=== PATIENT | male | born 1935 | race Caucasian/White ===

== ENCOUNTER 2016-09-14 16:53 | Inpatient (IN) | payer MEDICARE ==
[~2016-09-14] VITALS: Ht 180.3 cm; Wt 80.3 kg
[2016-09-14 17:09] VITALS: BP 144/94
--- NOTE | 2016-09-14 17:10 | NUR ---
PT ARRIVED TO FLOOR ACCOMPANIED BY STAFF AND AT SIDE VIA WC; PT.AMBULATED TO BED AND APPEARS TO BE IN STABLE CONDITION AT THIS TIME; V/S ASSESSED TEMP REPORTED AT 102.9, WAITING FOR TYLENOL TO BE PROFILED THROUGH CARDINAL/CALLED TO ORDER STAT; ORDERS BEING PUT IN PLACE, BLOOD DRAWN, WILL ATTEMPT TO COLLECT UA AND STOOL SAMPLES ORDERED; IV NEEDS TO BE PLACED, IS IN W/PT.NOW; PT. HAS BEEN ORIENTED TO ROOM, CALL SYSTEM, BED,TV AND INSTRUCTED TO CALL FOR AMBULATION AND ASSISTANCE
[2016-09-14 17:28] LABS: HEMATOCRIT 41.7 % (39.0-50.0); HEMOGLOBIN 14.1 g/dl (14.0-18.0); IMMATURE GRANULOCYTES 0.8 % (0.0-1.0); MEAN CORPUSCULAR HGB 32.8 pG CALC (26.0-32.0); MEAN CORPUSCULAR HGB CONC 33.8 g/L CALC (32.0-36.0); NEUT# 5.61 thou/uL (1.82-7.42); RED BLOOD COUNT 4.3 mill/uL (4.70-6.10); RED CELL DISTRI WIDTH 13.8 % (11.5-15.5)
[2016-09-14 17:43] LABS: ALBUMIN 4.3 g/dL (3.2-5.0); BILIRUBIN, TOTAL 0.9 mg/dL (0.0-1.4); CALCIUM 9.3 mg/dL (8.4-10.2); CREATININE 1.5 mg/dL (0.7-1.3)
--- NOTE | 2016-09-14 18:54 | NUR ---
IV SITE ACCESSED IN LFA; PT.TOLERATED WELL; BED IN LOWEST POSITION,CALL LIGHT W/IN REACH; PT.CALLING NOW
[2016-09-14 19:20] VITALS: BP 127/67
--- NOTE | 2016-09-14 19:30 | NUR ---
PATIENT RESTING IN BED ON THE PHONE AT THIS TIME. ALERT AND ORIENTEDX3. BOTH FEET ELEVATED ON PILLOWS WITH DRESSING TO BOTH FEET INTACT WITH HERVE WRAP DRESSING. HEP LOCK TO LEFT FOREARM INTACT AND APPEARS HEALTHY AT THIS TIME. VOIDING QS IN URINAL AND STILL NO BM. ABD IS SOFT WITH ACTIVE BS. SAFETY PRECAUTIONS REINFORCED. CALL LIGHT IN REACH. WILL CONT TO MONITOR.
--- NOTE | 2016-09-14 19:40 | NUR ---
PATIENT BACK IN ROOM AFTER GOING TO RADIOLOGY FOR CXR. PATIENT RESTING IN BED AWAKE ALERT AND ORIENTEDX3. IVF NS HUNG VIA LEFT FOREARM SITE AT 100CC/HR. SITE APPEARS HEALTHY AT THIS TIME. TEMP IS 100.4 AT THIS TIME. PATIENT WITH NO COMPLAINTS. LAB WORK IS BEING DRAWN. PATIENT INSTRUCTED THAT WE NEED BOTH URINE AND STOOL SPEC WHEN HE IS ABLE TO PROVIDE. LUNGS ARE CLEAR. HR IS IRREGULAR. TELE MONITORING DEVICE IN PLACE AND READING A-FIB-80. ABD IS SOFT WITH ACTIVE BS. NO PERIPHERAL EDEMA NOTED. SAFETY PRECAUTIONS REINFROCED. CALL LIGHT IN REACH. WILL CONT TO MONITOR.
--- NOTE | 2016-09-14 21:13 | NUR ---
PATIENT RESTING IN BED. IV MAXIPIME HUNG ORDERED. TEMP-99.3 AT THIS TIME. PATIENT WITH NO COMPLAINTS AT THIS TIME. CALL LIGHT IN REACH. WILL CONT TO MONITOR.
--- NOTE | 2016-09-14 21:52 | NUR ---
PATIENT VOIDED 350 YELLOW URINE AND URINE SPEC OBTAINED. FLAGYL INFUSING ORDERED. PATIENT WITH HS SNACK. CALL LIGHT IN REACH. WILL CONT TO MONITOR.
[2016-09-14 22:30] LABS: URINE BILIRUBIN - DIPSTICK NEGATIVE (NEGATIVE); URINE BLOOD DIPSTICK MODERATE (NEGATIVE); URINE CLARITY CLEAR; URINE COLOR YELLOW; URINE GLUCOSE - DIPSTICK NEGATIVE (NEGATIVE); URINE KETONE NEGATIVE (NEGATIVE); URINE LEUK ESTERASE NEGATIVE (Negative); URINE NITRITE - DIPSTICK NEGATIVE (Negative); URINE PROTEIN - DIPSTICK TRACE mg/dL (NEG-TRACE); URINE UROBILINOGEN - DIPSTICK 0.2 E.U./dL (0.2)
[2016-09-14 22:42] LABS: URINE WBC 0-2 WBC/hpf (0-5)
[2016-09-14 23:58] VITALS: BP 141/83
[2016-09-15] VITALS (7 sets, daily range): BP systolic 125–175; BP diastolic 71–92
--- NOTE | 2016-09-15 00:10 | NUR ---
PATIENT RESTING IN BED WITH NO COMPLAINTS AT THIS TIME. AFEBRILE AT THIS TIME. CALL LIGHT IN REACH. WILL CONT TO MONITOR.
--- NOTE | 2016-09-15 03:23 | NUR ---
PATIENT RESTING IN BED SHIVERING-TEMP IS 101.5. PATIENT MEDICATED WITH TYLENOL 650MG PO. BLANKETT REMOVED FROM BED. PATIENT VOIDING CLEAR YELLOW URINE IN URINAL. PATIENT OFFERED DIET COLA AND WAS ABLE TO DRINK IT. CALL LIGHT IN REACH. WILL CONT TO MONITOR.
[2016-09-15 04:07] LABS: HEMATOCRIT 39.8 % (39.0-50.0); HEMOGLOBIN 13.9 g/dl (14.0-18.0); IMMATURE GRANULOCYTES 0.8 % (0.0-1.0); MEAN CELL VOLUME 94.8 fL CALC (80.0-100.0); MEAN CORPUSCULAR HGB 33.1 pG CALC (26.0-32.0); MEAN CORPUSCULAR HGB CONC 34.9 g/L CALC (32.0-36.0); NEUT# 5.27 thou/uL (1.82-7.42); RED BLOOD COUNT 4.2 mill/uL (4.70-6.10); RED CELL DISTRI WIDTH 13.5 % (11.5-15.5)
[2016-09-15 04:19] LABS: ALBUMIN 3.9 g/dL (3.2-5.0); ALKALINE PHOSPHATASE 67 u/l (38-126); ANION GAP 16 (6-22 (CALC)); BILIRUBIN, TOTAL 0.9 mg/dL (0.0-1.4); BUN 19 mg/dL (8-23); BUN/CREATININE RATIO 15 (12-20 (CALC)); CALCIUM 8.8 mg/dL (8.4-10.2); CARBON DIOXIDE 24 mmol/l (22-30); CHLORIDE 100 mmol/l (95-108); CREATININE 1.3 mg/dL (0.7-1.3); GFR 53 ML/MIN (>=60 (CALC)); GFR FOR AFR.AMER. > 60 ML/MIN (>=60 (CALC)); GLUCOSE 95 mg/dL (82-115); POTASSIUM 3.6 mmol/l (3.5-5.1); SGOT/AST 30 u/l (19-48); SGPT/ALT 34 u/l (11-66); SODIUM 137 mmol/l (137-146); TOTAL PROTEIN 6.5 g/dL (6.3-8.2)
--- NOTE | 2016-09-15 07:45 | NUR ---
ASSESSMENT IS COMPLETED: IV SITE IS FREE FROM REDNESS OR EDEMA. NO DISTRESS NOTED. FAMILY HAS CALLED AND INQUIRED ABOUT PT. CONTINUE TO OSBERVE AND MONITOR,.
[2016-09-15] MEDS ORDERED: TYLENOL 500MG TAB PO (10:05)
[2016-09-15] MEDS ORDERED: FISH OIL1000 MG PO (10:07)
[2016-09-15] MEDS ORDERED: FLAXSEED OIL1000 MG PO (10:07)
[2016-09-15] MEDS ORDERED: [UNRECOGNIZED DRUG - OTHER] PO (10:12)
[2016-09-15] MEDS ORDERED: FOSINOPRIL40 MG PO (10:13)
[2016-09-15] MEDS ORDERED: AMLODIPINE5 MG PO (10:14)
[2016-09-15] MEDS ORDERED: TERAZOSIN5 MG PO (10:16)
[2016-09-15] MEDS ORDERED: NOVOLIN N100 UNIT/1 SC (10:19)
[2016-09-15] MEDS ORDERED: METO50TA52 PO (10:20)
[2016-09-15] MEDS ORDERED: CYANOCOBAL1000 MCG/M IM (10:22)
--- NOTE | 2016-09-15 12:00 | NUR ---
PT IS RELAXING IN BED HAS BEEN RUNNING A FEVER OF 100.8 THEN REDUCED WHEN TYLENOL WAS GIVEN. CONTINUE TO OSBERVE AND MONITOR. FAMILY HAS BEEN CALLING AND INQUIRING. IV SITE IS FREE FROM REDNESS OR EDEMA.
--- NOTE | 2016-09-15 13:50 | NUR ---
PT RETURNED FROM CT SCAN AND RECEIVED A CALL FROM HIS DAUGHTER IN [place].
--- NOTE | 2016-09-15 16:00 | NUR ---
PT IS RELAXING IN BED WITH MO DISTRESS NOTED. IV SITE IS FREE FROM REDNESS OR EDEMA.
--- NOTE | 2016-09-15 19:00 | NUR ---
RECEIVED SHIFT REPORT FROM RACHEL ARANDA. PATIENT LAYING IN BED AND FANILY AT BEDSIDE. DENIES PAIN. NO APPARENT ACUTE DISTRESS OR DISCOMFORT NOTED.
--- NOTE | 2016-09-15 21:19 | NUR ---
ADMINISTER MAGNESIUM CITRATE AND DULCOLAX SUPPOSITORY TO EASE DEFECATION. TOLERATED WELL.
--- NOTE | 2016-09-15 22:30 | NUR ---
PATIENT HAD A LARGE BM POST LAXATIVE ADMINISTRATION.
--- NOTE | 2016-09-16 | NUR ---
PATIENT APPEARS TO BE ASLEEP WITH EYES CLOSED. NO APPARENT ACUTE DISTRESS NOTED.
[2016-09-16 02:32] LABS: C. DIFFICILE TOXIN A&B NEGATIVE (NEGATIVE)
--- NOTE | 2016-09-16 04:00 | NUR ---
PATIENT APPEARS TO BE ASLEEP WITH EYES CLOSED. NO APPARENT ACUTE CHANGES NOTED IN PATIENT'SCONDITION.
[2016-09-16 04:35] VITALS: BP 130/81
[2016-09-16 05:29] LABS: HEMATOCRIT 36.8 % (39.0-50.0); HEMOGLOBIN 12.8 g/dl (14.0-18.0); IMMATURE GRANULOCYTES 0.8 % (0.0-1.0); MEAN CELL VOLUME 94.6 fL CALC (80.0-100.0); MEAN CORPUSCULAR HGB 32.9 pG CALC (26.0-32.0); MEAN CORPUSCULAR HGB CONC 34.8 g/L CALC (32.0-36.0); NEUT# 3.04 thou/uL (1.82-7.42); RED BLOOD COUNT 3.89 mill/uL (4.70-6.10); RED CELL DISTRI WIDTH 13.3 % (11.5-15.5)
[2016-09-16 05:44] LABS: ALBUMIN 3.2 g/dL (3.2-5.0); ALKALINE PHOSPHATASE 60 u/l (38-126); ANION GAP 13 (6-22 (CALC)); BILIRUBIN, TOTAL 0.9 mg/dL (0.0-1.4); BUN 18 mg/dL (8-23); BUN/CREATININE RATIO 15 (12-20 (CALC)); CALCIUM 8.3 mg/dL (8.4-10.2); CARBON DIOXIDE 27 mmol/l (22-30); CHLORIDE 100 mmol/l (95-108); CREATININE 1.3 mg/dL (0.7-1.3); GFR 53 ML/MIN (>=60 (CALC)); GFR FOR AFR.AMER. > 60 ML/MIN (>=60 (CALC)); GLUCOSE 151 mg/dL (82-115); POTASSIUM 3.5 mmol/l (3.5-5.1); SGOT/AST 35 u/l (19-48); SGPT/ALT 33 u/l (11-66); SODIUM 137 mmol/l (137-146); TOTAL PROTEIN 5.7 g/dL (6.3-8.2)
[2016-09-16 07:33] VITALS: BP 152/87
--- NOTE | 2016-09-16 07:33 | NUR ---
PT SITTING UP IN BED WITH NO DISTRESS NOTED. IV SITE IS FREE FROM REDNESS OR EDEMA. TELE MONITOR IN PLACE. BREATH SOUNDS ARE CLEAR AND DIMINISHED. HR IS IRREG, PULSES ARE STRONG. ABD IS SOFT WITH ACTIVE BS, CONTINUE TO OSBERVE AND MONITOR.
--- NOTE | 2016-09-16 09:44 | NUR ---
Pt seen this am for mobility/gait. Pt moved supine to sit with use of bed rail, indep. Sit to stand with SBA/CGA. Pt ambulated x 180' with CGA/SBA without device. No LOB noted. Pt returned to room and IN FLIGHT TECHNICIAN preparing for shower.
[2016-09-16 11:27] VITALS: BP 139/82
--- NOTE | 2016-09-16 11:36 | NUR ---
SPOKE WITH PT RE: WARM ROOM. NEEDS TO BE COOLED OFF DUE TO FEVER ISSUES. VERBALIZED "IT FEELS COMFORTABLE TO ME". CONTINUE TO OSBERVE AND MONITOR.
[2016-09-16 15:53] VITALS: BP 131/73
--- NOTE | 2016-09-16 16:45 | NUR ---
PT HAS BEEN RESTING IN BED . CONTINUE TO COOL THE ROOM DOWN DUE TO TEMPERATURE RISING. INQUIRED " WHAT DIFFERENCE DOES IT MAKE IF I AM IN [address] WEATHER OUTSIDE AND THEN FREEZING IN HERE". FAMILY HAS BEEN CALLING AND INQUIRING.AND SPOKE WITH PEYTON HENRY/.
[2016-09-16 18:55] VITALS: BP 164/89
--- NOTE | 2016-09-16 19:45 | NUR ---
REPORT FROM ROSI MARLEY LPN. INTRODUCED TO PT, A/O X3, C/O HAVING TOO MANY LOOSE STOOLS, STATES "I WANT SOME IMODIUM TO STOP THIS; I CAN'T TAKE IT ANYMORE." EXPLAINED THE RATIONALE FOR HAVING TOO MANY STOOLS, PT IS IN DENIAL AND CONTINUES ASKING FOR IMODIUM; WILL NOTIFY MD OF PT REQUEST, CALL MARK AT REACH WILL CONTINUE TO MONITOR.
--- NOTE | 2016-09-16 21:24 | NUR ---
ASSISTED PT TO BSC, VOIDED 300CC OF CLEAR YELLOW URINE, LOOSE WATERY BM NOTED, MODERATE, YELLOW, PT C/O OF TOO MANY GASSES, AND ABD DISCOMFORT, STATES "GIVE SOMETHING TO STOP HAVING TOO MANY WATERY STOOLS." HYPERACTIVE GURGLING SOUNDS X4QUAD NOTED, ABD IS SOFT AND TENDER TO TOUCH, ASSISTED WITH TURNING ON R SIDE FOR COMFORT, RESP ARE UNLABORED, WILL CONTINUE TO MONITOR. CALL MARK AT REACH.
--- NOTE | 2016-09-16 22:59 | NUR ---
PT UP TO BSC, TELE IN PLACE, AFIB ON MONITOR PER ER WITH HR 120, WILL CONTINUE TO MONITOR.
--- NOTE | 2016-09-16 23:03 | NUR ---
PT HAD A LOOSE, LARGE BM, STATES HAVING SOME ABD DISCOMFORT, HYPERACTIVE GURGLING ABD SAOUNDS AUSCULTATED.
[2016-09-17] VITALS (7 sets, daily range): BP systolic 124–163; BP diastolic 69–96
--- NOTE | 2016-09-17 00:45 | NUR ---
MEDICATED PT WITH TYLENOL FOR TEMP 101.1; REMOVED BLANKETS, ADJUSTED ROOM TEMP, COOL CLOTH ON FOREHEAD, AND ICE BAGS UNDER ARMS AND BETWEEN LEGS, WILL CONTINUE TO MONITOR.
--- NOTE | 2016-09-17 01:44 | NUR ---
TYMPANIC TEMP 100.O; SANIA NELSON, ASSISTED PT WITH A BED BATH. WILL CONTINUE TO REASSESS, CALL MARK AT REACH.
--- NOTE | 2016-09-17 03:23 | NUR ---
97.6 TYMPANIC TEMP; AWAKE; A/O X3; AUDIBLE FLATUS NOTED; ASSISTED TO BSC, NO DISTRESS NOTED; CALL MARK AT REACH.
--- NOTE | 2016-09-17 05:50 | NUR ---
PT AWAKE, A & O X3, RESTING IN BED, DENIES PAIN OR DISCOMFORT, DENIES HAVING MORE LOOSE STOOLS SINCE MIDNIGHT. RESP ARE EVEN AND UNLABORED, IVF INFUSING WITHOUT INCIDENT, IV SITE IS INTACT, ENCOURAGED TO CALL IF NEEDED, VOICES UNDERSTANDING, TYMPANIC TEMP 97.0 AT THIS TIME, CALL MARK AT REACH.
[2016-09-17 06:03] LABS: HEMATOCRIT 38.7 % (39.0-50.0); HEMOGLOBIN 13.5 g/dl (14.0-18.0); MEAN CELL VOLUME 95.3 fL CALC (80.0-100.0); MEAN CORPUSCULAR HGB 33.3 pG CALC (26.0-32.0); MEAN CORPUSCULAR HGB CONC 34.9 g/L CALC (32.0-36.0); RED BLOOD COUNT 4.06 mill/uL (4.70-6.10); RED CELL DISTRI WIDTH 13.3 % (11.5-15.5)
[2016-09-17 06:04] LABS: ANION GAP 13 (6-22 (CALC)); BUN 15 mg/dL (8-23); BUN/CREATININE RATIO 13 (12-20 (CALC)); CALCIUM 8.4 mg/dL (8.4-10.2); CARBON DIOXIDE 27 mmol/l (22-30); CHLORIDE 103 mmol/l (95-108); CREATININE 1.1 mg/dL (0.7-1.3); GFR > 60 ML/MIN (>=60 (CALC)); GFR FOR AFR.AMER. > 60 ML/MIN (>=60 (CALC)); GLUCOSE 154 mg/dL (82-115); POTASSIUM 3.8 mmol/l (3.5-5.1); SODIUM 139 mmol/l (137-146)
--- NOTE | 2016-09-17 08:18 | NUR ---
ASSESSMENT IS COMPLETED: PT IS RELAXING IN BED WITH NO DISTRESS NOTED. IV SITE IS FREE FROM REDNESS OR EDEMA. CONTINUE TO KIERA AND VERONICA
[2016-09-17 09:31] LABS: C-REACTIVE PROTEIN > 9.0 mg/dL (0-0.9)
--- NOTE | 2016-09-17 11:03 | NUR ---
PT WAS OOB INDEPEPENDENTLY, WAS ABLE TO AMBULATE IN THE HALLWAY ~150 FT. X 2 W/O AD, OFFERED SBA TO ENSURE SAFETY. RETURNED TO THE ROOM W/O SIGNS OR REPORTS OF ADVERSE RXNS. SPO2 MAINTAINED AT 98-99%.
--- NOTE | 2016-09-17 12:00 | NUR ---
PT IS RELAXING IN BED WITH NO DISTRESS NOTED. IV SITE IS FREE FROM REDNESS OR EDEMA,
--- NOTE | 2016-09-17 16:00 | NUR ---
PT IS RELAXING IN BED AND ALSO IN THE CHAIR, NO DISTRESS NOTED. IV SITE IS FREE FROM REDNESS OR EDEMA.
--- NOTE | 2016-09-17 18:45 | NUR ---
RECEIVED REPORT FROM ROSI MARLEY LPN. SPOUSE AT BEDSIDE, FOUND PT A/OX3, VERY PLEASANT, TALKACTIVE, DENIES PAIN, RESP ARE UNLABORED, ENCOURAGED TO CALL IF NEEDED, WILL CONTINUE TO MONITOR.
--- NOTE | 2016-09-17 19:46 | NUR ---
VISITOR LEAVING AT THIS TIME.
--- NOTE | 2016-09-17 20:00 | NUR ---
FOUND PT SITTING IN THE COMMODE, NO BM NOTED, VOIDED 200CC CLEAR YELLOW URINE, STEADY GAIT NOTED, VOICES NO COMPLAINTS, NO S/S OF DISTRESS, A-FIB 79 PER ER MONITOR, VSS, AFEBRILE, REQUESTING A SNACK, WILL CHECK BG BEFORE SNACK, IV IS INTACT,#22G LFA INFUSING NS @ 100 ML/HR WITHOUT DIFFICULTY, LUNGS ARE CLEAR WITH DIMINISHED BIBASILAR, PT IS ON ROOM AIR, NO SKIN ISSUES NOTED, STRONG PEDAL PULSES, ABD IS SOFT WITH ACTIVE BS X4QUAD, EXPLAINED MED SCHEDULE AND PLAN OF CARE, VOICES UNDERSTANDING, CALL MARK AT REACH WILL CONTINUE TO MONITOR. PM ASSESSMENT COMPLETED, SEE INTERVENTIONS FOR DETAILS.
--- NOTE | 2016-09-17 20:28 | NUR ---
FINGERSTICK ACCU CHECK 242 AT THIS TIME; PROVIDED A SNACK.
--- NOTE | 2016-09-17 20:35 | NUR ---
PT HAS NO ORDERS FOR INSULIN COVERAGE @ BEDTIME.
--- NOTE | 2016-09-17 22:52 | NUR ---
EMPTIED 400CC CLEAR YELLOW URINE FROM BSC, PT IS AFEBRILE, NO S/S OF DISTRESS NOTED, OFFERS NO COMPLAINTS OR NEEDS, RESP ARE UNLABORED, ENCOURAGED TO CALL IF NEEDED, WILL CONTINUE TO MONITOR. CALL MARK AT REACH.
--- NOTE | 2016-09-18 00:01 | NUR ---
PT APPEARS TO BE SLEEPING WITH EYES CLOSED, VOICES NO COMPLAINTS, RESP ARE EVEN AND UNLABORED, NO S/S OF DISTRESS, VSS, AFEBRILE, WILL CONTINUE TO MONITOR. CALL MARK AT REACH.
--- NOTE | 2016-09-18 04:00 | NUR ---
PT AWAKE, WATCHING TV, STATES "I FEEL A LOT BETTER THIS MORNING." VSS, AFEBRILE, RESP ARE EVEN AND UNLABORED, A-FIB ON MONITOR PER ER WITH OCCA PVC'S HR STABLE, OFFERED FRESH WATER, PT REFUSES TO DRINK WATER AND REQUESTED A DIET COKE, STATES "I NEVER DRINK WATER AT HOME, AND I DON'T EVEN LIKE WATER." EDUCATED ABOUT HYDRATING WITH PO WATER, PT IS IN DENIAL AND REFUSES TO DRINK WATER, NO BM NOTED, EMPTIED 400CC OF CLEAR YELLOW URINE, DENIES OTHER NEEDS, VERY PLEASANT AND TALKACTIVE, STATES "I CAN'T WAIT TO GET TO MY NORMAL ROUTINE AT HOME." IV SITE IS PATENT, INFUSING IVF FLUIDS PER EMAR, WILL CONTINUE TO MONITOR, CALL MARK IS AT REACH.
[2016-09-18 04:09] VITALS: BP 154/92
--- NOTE | 2016-09-18 05:37 | NUR ---
LAB TECHN IN PT ROOM DRAWING MORNING LABS.
[2016-09-18 06:02] LABS: HEMATOCRIT 42.6 % (39.0-50.0); HEMOGLOBIN 14.7 g/dl (14.0-18.0); IMMATURE GRANULOCYTES 1.3 % (0.0-1.0); MEAN CELL VOLUME 95.7 fL CALC (80.0-100.0); MEAN CORPUSCULAR HGB CONC 34.5 g/L CALC (32.0-36.0); NEUT# 4.52 thou/uL (1.82-7.42); RED BLOOD COUNT 4.45 mill/uL (4.70-6.10); RED CELL DISTRI WIDTH 13.2 % (11.5-15.5)
[2016-09-18 06:17] LABS: ANION GAP 16 (6-22 (CALC)); BUN 17 mg/dL (8-23); BUN/CREATININE RATIO 17 (12-20 (CALC)); CALCIUM 9.4 mg/dL (8.4-10.2); CARBON DIOXIDE 27 mmol/l (22-30); CHLORIDE 103 mmol/l (95-108); GFR > 60 ML/MIN (>=60 (CALC)); GFR FOR AFR.AMER. > 60 ML/MIN (>=60 (CALC)); GLUCOSE 324 mg/dL (82-115); POTASSIUM 4.2 mmol/l (3.5-5.1); SODIUM 141 mmol/l (137-146)
--- NOTE | 2016-09-18 06:32 | NUR ---
FINGERSTICK ACCU CHECK 288, WILL COVER PER SLIDING SCALE MD ORDERS.
--- NOTE | 2016-09-18 07:00 | NUR ---
SHIFT CHANGE REPORT FROM MALGORZATA BUSCH AWAKE ALERT AND ORIENTED, INQUIRING WHETHER OR NOT HE WILL BE SENT HOME TODAY AND ADVISED MD WILL ROUND TODAY AND DECIDE PLAN OF CARE. IVF INFUSING, ALL OTHER NEEDS MET/ADDRESSED, CALL MARK IN REACH.
[2016-09-18 08:16] VITALS: BP 144/81
[2016-09-18 09:05] VITALS: BP 144/81
[2016-09-18] MEDS ORDERED: PREDNISONE20 MG PO (11:08)
[2016-09-18] MEDS ORDERED: AZITHROMYCIN500 MG PO (11:09)
--- NOTE | 2016-09-18 12:00 | NUR ---
SITTING UP AT BEDSIDE HAVING MEAL, ALL NEEDS MET/ADDRESSED, HERE ROUNDING AND INFORMED PT OF D/C PLANS, CALL MARK IN REACH.
--- NOTE | 2016-09-18 13:07 | NUR ---
Discharge instructions given. Patient verbalizes understanding of same. Discharged in good condition via Wheelchair to Home with spouse. All belongings sent with pt.
== END 2016-09-18 13:00 | disposition home or self-care (01) | DRG 864 ==
LOC: MS2 16:53
PROVIDERS: Nurse Practitioner Family; ADMIT Internal Medicine; ATTEND Internal Medicine
DX: R50.9 Fever, unspecified (principal); E11.22 Type 2 diabetes mellitus with diabetic chronic kidney disease; I48.91 Unspecified atrial fibrillation; N18.3 Chronic kidney disease, stage 3 (moderate); D69.6 Thrombocytopenia, unspecified; R53.1 Weakness; I12.9 Hypertensive chronic kidney disease with stage 1 through stage 4 chronic kidney disease, or unspecified chronic kidney disease; K56.41 Fecal impaction; N40.0 Benign prostatic hyperplasia without lower urinary tract symptoms; Z86.79 Personal history of other diseases of the circulatory system; Z79.4 Long term (current) use of insulin; Z87.891 Personal history of nicotine dependence
CPT/HCPCS: J0692

== ENCOUNTER 2021-09-03 09:49 | Inpatient (IN) | payer MEDICARE, OTHER ==
[~2021-09-03] VITALS: Ht 180.3 cm; Wt 80.0 kg
[2021-09-03] VITALS (16 sets, daily range): BP systolic 92–148; BP diastolic 40–77
[~2021-09-03 09:49] MED LIST: AMLODIPINE5 MG PO; AZITHROMYCIN500 MG PO; CYANOCOBAL1000 MCG/M IM; FISH OIL1000 MG PO; FLAXSEED OIL1000 MG PO; LEVOTHYROXIN50 MCG PO; METO50TA52 PO; MONOPRIL40 MG PO; NOVOLIN N100 UNIT SC; POTASSIUM99 MG PO; PREDNISONE20 MG PO; TERAZOSIN5 MG PO; TYLENOL 500MG TAB PO; [UNRECOGNIZED DRUG - OTHER] PO
--- NOTE | 2021-09-03 09:52 | NUR ---
PT TO ROOM VIA WC
[2021-09-03 10:15] LABS: HEMATOCRIT 33.5 % (39.0-50.0); HEMOGLOBIN 10.4 g/dl (14.0-18.0); IMMATURE GRANULOCYTES 0.5 % (0.0-5.0); MEAN CELL VOLUME 105.7 fL CALC (80.0-100.0); MEAN CORPUSCULAR HGB 32.8 pG CALC (26.0-32.0); NEUT# 13.41 thou/uL (1.82-7.42); RED BLOOD COUNT 3.17 mill/uL (4.70-6.10); RED CELL DISTRI WIDTH 16.1 % (11.5-15.5)
[2021-09-03 10:38] LABS: ALBUMIN 3.4 g/dL (3.2-5.0); CREATININE 1.4 mg/dL (0.7-1.3); TOTAL PROTEIN 6.5 g/dL (6.3-8.2)
[2021-09-03 10:43] LABS: BILIRUBIN, TOTAL 1.6 mg/dL (0.0-1.4); POTASSIUM 4.2 mmol/l (3.5-5.1)
--- NOTE | 2021-09-03 11:15 | NUR ---
PT TO RADIOLOGY IN STABLE CONDITION
--- NOTE | 2021-09-03 12:06 | NUR ---
PT RESTING ON STRETCHER; NO S/S OF DISTRESS NOTED; IVF INFUSING; PT AND SPOUSE ADVISED OF CONTINUED WAIT TIME
[2021-09-03 12:55] LABS: URINE BILIRUBIN - DIPSTICK NEGATIVE (NEGATIVE); URINE BLOOD DIPSTICK MODERATE (NEGATIVE); URINE COLOR YELLOW; URINE GLUCOSE - DIPSTICK NEGATIVE (NEGATIVE); URINE KETONE TRACE mg/dL (NEGATIVE); URINE LEUK ESTERASE NEGATIVE (NEGATIVE); URINE PH 5.5 (4.5-8.0); URINE PROTEIN - DIPSTICK 30 mg/dL (NEG-TRACE); URINE SPECIFIC GRAVITY 1.015
--- NOTE | 2021-09-03 13:00 | NUR ---
LUNCH TRAY GIVEN; PT ADVISED OF CONTINUED WAIT TIME; MONITORING DEVICES IN PLACE; CALL LIGHT WITHIN REACH
[2021-09-03 13:26] LABS: URINE NITRITE - DIPSTICK NEGATIVE (Negative)
[2021-09-03 13:27] LABS: URINE EPITHELIAL CELLS FEW EPI/hpf (0-FEW); URINE MUCUS MODERATE hpf (NONE-FEW)
--- NOTE | 2021-09-03 14:00 | NUR ---
DR VARNER AT BEDSIDE TO DISCUSS POC AND FINDINGS
--- NOTE | 2021-09-03 15:13 | NUR ---
RECEIVED PATIENT FROM ER VIA WHEELCHAIR. RECIVED REPORT FROM PROCUREMENT TECHNICIAN. PATIENT IS A&OX4, ON ROOM AIR, ON DIAMOND WHEEL EDGER. ORIENTED PATIENT TO ROOM, EDUCATED ON SAFETY AND USAGE OF CALL LIGHT/REMOTE. BED IN LOWEST POSITON CALL LIGHT WITHIN REACH.
--- NOTE | 2021-09-03 15:20 | NUR ---
Admission Note Report Given to: RACHEL ALVARADO Transported by: X Wheelchair Stretcher Transported with: X Nurse X Transporter X Patent IV O2 X Settlement Worker Location: ICU X [facility]
--- NOTE | 2021-09-03 16:00 | NUR ---
PATIENT RESTING IN BED IN LOW SEMI-FOWLERS POSITION AWAKE WATCHING TV. PATIENT DENIES ANY PAIN OR DISCOMFORT AT THIS TIME. BED IN LOWEST POSITION CALL LIGHT WITHIN REACH.
--- NOTE | 2021-09-03 20:15 | NUR ---
PATIENT RESTING IN BED. AND SON AT THE BEDSIDE. NO DISTRESS NOTED. AOX3. ADDRESSED PATIENT'S AND FAMILY'S CONCERNS. FALL PRECAUTIONS IN PLACE. CALL MARK WITHI REACH.
[2021-09-04] VITALS (10 sets, daily range): BP systolic 111–161; BP diastolic 63–90
--- NOTE | 2021-09-04 00:42 | NUR ---
PATIENT OBSERVED SLEEPING. NO DITRESS NOTED. FALL PRECAUTIONS IN PLACE. CALL MARK WITHI REACH.
--- NOTE | 2021-09-04 03:00 | NUR ---
ALERTED BY CONTENT MANAGER PATIENT HEART INCREASED TO THE 140'S. ENTERED PATIENT ROOM, PATIENT UP TO BATHROOM WITH MANAGER OF HOUSEKEEPING. NO DISTRESS NOTED. PATIENT DENIES CHEST PAIN AND/OR ANY OTHER SYMPTOMS.
--- NOTE | 2021-09-04 04:13 | NUR ---
PATIENT RESTING IN BED. NO DISTRESS NOTED. FALL PRECAUTIONS IN PLACE. CALL MARK WITHIN REACH.
[2021-09-04 05:44] LABS: HEMATOCRIT 28.5 % (39.0-50.0); HEMOGLOBIN 8.9 g/dl (14.0-18.0); IMMATURE GRANULOCYTES 0.4 % (0.0-5.0); MEAN CELL VOLUME 105.9 fL CALC (80.0-100.0); MEAN CORPUSCULAR HGB 33.1 pG CALC (26.0-32.0); MEAN CORPUSCULAR HGB CONC 31.2 g/dL CAL (32.0-36.0); NEUT# 8.29 thou/uL (1.82-7.42); RED BLOOD COUNT 2.69 mill/uL (4.70-6.10); RED CELL DISTRI WIDTH 15.9 % (11.5-15.5)
[2021-09-04 06:12] LABS: ALBUMIN 2.8 g/dL (3.2-5.0); ALKALINE PHOSPHATASE 69 u/l (38-126); ANION GAP 8 (6-22 (CALC)); BUN 15 mg/dL (8-23); BUN/CREATININE RATIO 15 (12-20 (CALC)); CARBON DIOXIDE 24 mmol/l (22-30); CHLORIDE 107 mmol/l (95-108); GFR FOR AFR.AMER. > 60 ML/MIN (>=60 (CALC)); GFR OTHER RACES > 60 ML/MIN (>=60 (CALC)); MAGNESIUM 1.7 mg/dL (1.6-2.3); POTASSIUM 3.4 mmol/l (3.5-5.1); SODIUM 135 mmol/l (137-146); TOTAL PROTEIN 5.6 g/dL (6.3-8.2)
[2021-09-04 06:20] LABS: BILIRUBIN, TOTAL 0.8 mg/dL (0.0-1.4); SGOT/AST 53 u/l (19-48)
--- NOTE | 2021-09-04 08:36 | NUR ---
PT RESTING IN FOWLERS POSITION. A/OX3 ASSESSMENT AND VS COMPLETED. PT REFUSED AMLODIPINE MED . PT STATES HE STOPPED TAKING THIS MEDICATION MONTHS BACK. HEART RHYTHM ABNORMAL .ON TELE . RESPIRATIONS EVEN AND UNLABORED. BOWEL SOUNDS ACTIVE. IV SITE NOTED INFUSING WITH NS . PT DENIES WOUNDS. ALL SAFETY PRECAUTIONS IN PLACE. PT FALL RISK.
--- NOTE | 2021-09-04 11:25 | NUR ---
PROVIDERS AT BEDSIDE
[2021-09-04] MEDS ORDERED: MAGNESIUM250 M2 PO (11:33)
--- NOTE | 2021-09-04 12:04 | NUR ---
PT RESTING IN FOWLERS POSITION. PT DENIES ADDITIONAL NEEDS AT THE TIME ALL SAFETY PRECAUTIONS IN PLACE. WITH CALL LIGHT IN REACH.
--- NOTE | 2021-09-04 16:30 | NUR ---
PT RESTING IN FOWLERS POSITION. PT DENIES ADDITIONAL NEEDS AT THE TIME SAFETY PRECAUTIONS IN PLACE.
--- NOTE | 2021-09-04 19:52 | NUR ---
PATIENT LAYING IN BED. AOX3. NO DISTRESS NOTED. PATIENT HAS NO COMPLAINTS OF PAIN OR DISCOMFORT. FALL PRECAUTIONS IN PLACE. CALL MARK WITHIN REACH.
[2021-09-05] VITALS (11 sets, daily range): BP systolic 138–179; BP diastolic 65–91
[2021-09-05 04:57] LABS: HEMATOCRIT 29.3 % (39.0-50.0); IMMATURE GRANULOCYTES 0.6 % (0.0-5.0); MEAN CELL VOLUME 106.9 fL CALC (80.0-100.0); MEAN CORPUSCULAR HGB 32.8 pG CALC (26.0-32.0); MEAN CORPUSCULAR HGB CONC 30.7 g/dL CAL (32.0-36.0); NEUT# 6.18 thou/uL (1.82-7.42); RED BLOOD COUNT 2.74 mill/uL (4.70-6.10); RED CELL DISTRI WIDTH 15.8 % (11.5-15.5)
--- NOTE | 2021-09-05 07:24 | NUR ---
PT RESTING IN FOWLERS POSITION. A/OX3 HARD OF HEARING , ASSESSMENT AND VS COMPLETED. HEART RHYTHM ABNORMAL. RESPIRATIONS EVEN AND UNLABORED. BOWEL SOUNDS ACTIVE. IV SITE NOTED TO RIGHT FORE ARM. PT DENIES ADDITIONAL NEEDS AT THE TIME AL SAFETY PRECAUTIONS IN PLACE. WITH CALL LIGHT IN REACH.
[2021-09-05 08:18] LABS: ANION GAP 8 (6-22 (CALC)); BUN 14 mg/dL (8-23); BUN/CREATININE RATIO 15 (12-20 (CALC)); CARBON DIOXIDE 23 mmol/l (22-30); CHLORIDE 110 mmol/l (95-108); CREATININE 0.9 mg/dL (0.7-1.3); GFR FOR AFR.AMER. > 60 ML/MIN (>=60 (CALC)); GFR OTHER RACES > 60 ML/MIN (>=60 (CALC)); POTASSIUM 3.7 mmol/l (3.5-5.1); SODIUM 136 mmol/l (137-146)
--- NOTE | 2021-09-05 12:50 | NUR ---
PT RESTING IN SEMI FOWLERS POSITION. PT DENIES ADDITIONAL NEEDS AT THE TIME ALL SAFETY PRECAUTIONS IN PLACE.
--- NOTE | 2021-09-05 16:55 | NUR ---
PT RESTING IN FOWLERS POSITION. PT EDUCATED ON INSULIN. ALL SAFETY PRECAUTIONS IN PLACE.
--- NOTE | 2021-09-05 20:30 | NUR ---
PATRIENT AMBULATING IN ROOM. ASSESMENT COMPLETED AT THIS TIME. PATIENT DENIES PAIN. NO S/S OF DISTRESS NOTED. PITTING EDEMA NOTED TO BLE +1. PATIENT HAS A 20G IV TO RFA SL PATENT AND FLUSHES WELL. CALL LIGHT IN REACH AND BED IN LOW POSITION. CONTINUE TO MONITOR.
[2021-09-06] VITALS (10 sets, daily range): BP systolic 134–179; BP diastolic 64–104
--- NOTE | 2021-09-06 00:15 | NUR ---
PATIENT IN BED RESTING WITH EYES CLSOED BREATHING EVEN AND UNLABORED. NO S/S OF DISTRESS NOTED. CALL LIGHT IN REACH AND BED IN LOWEST POSITION. CONTINUE TO MONITOR.
--- NOTE | 2021-09-06 04:18 | NUR ---
PATIENT IN BED SLEEPING WITH EYES CLOSED BREATHING EVEN AND UNLABORED. NO S/S OF DISTRESS NOTED. CALL LIGHT IN REACH AND BED IN LOWEST POSITION.
[2021-09-06 05:28] LABS: HEMATOCRIT 29.4 % (39.0-50.0); MEAN CELL VOLUME 106.9 fL CALC (80.0-100.0); MEAN CORPUSCULAR HGB 32.7 pG CALC (26.0-32.0); MEAN CORPUSCULAR HGB CONC 30.6 g/dL CAL (32.0-36.0); RED BLOOD COUNT 2.75 mill/uL (4.70-6.10); RED CELL DISTRI WIDTH 15.7 % (11.5-15.5)
[2021-09-06 05:50] LABS: ANION GAP 6 (6-22 (CALC)); BUN 13 mg/dL (8-23); BUN/CREATININE RATIO 14 (12-20 (CALC)); CARBON DIOXIDE 25 mmol/l (22-30); CHLORIDE 107 mmol/l (95-108); CREATININE 0.9 mg/dL (0.7-1.3); GFR FOR AFR.AMER. > 60 ML/MIN (>=60 (CALC)); GFR OTHER RACES > 60 ML/MIN (>=60 (CALC)); MAGNESIUM 1.6 mg/dL (1.6-2.3); POTASSIUM 3.3 mmol/l (3.5-5.1); SODIUM 135 mmol/l (137-146)
--- NOTE | 2021-09-06 08:12 | NUR ---
PT RESTING IN HIGH FOWLERS POSITION. A/OX3 ASSESSMENT AND VS COMPLETED. HEART RHYHTM IRREGULAR. RESPIRATIONS UNLABORED. BOWEL SOUNDS HYPOACTIVE. PT DENIES MILK OF MAG NOW PT STATES HE WOULD LIKE IT AT NIGHT TIME. ALL SAFETY PRECAUTIONSD IN PLACE.
--- NOTE | 2021-09-06 12:00 | NUR ---
PT RESTING IN HIGH FOWLERS POSITION. PT DENIES ADDITIONAL NEEDS AT THE TIME ALL SAFETY PRECAUTIONS IN PLACE. FLUIDS TO BE CONTINUED. IV FLUIDS REMOVED PRIOR EDEMA.+1
--- NOTE | 2021-09-06 16:27 | NUR ---
PT RESTING IN SEMI FOWLERS POSITION. NULYTLEY EDUCATION GIVEN PT STATED UNDERSTANDING. PT DRANK 200 ML PT FLUIDS HELD AT THE MOMENT PT REQUESTED EPR NULYTLEY TO CAUSE BM .
--- NOTE | 2021-09-06 17:00 | NUR ---
AID VERBALLY STATED BLOOD SUGAR. 54 . GAVE APPLE JUICE TO PT STATES HE IS COLD. NOTIFIED PROVIDER VIA TELEPHONE. PROVIDER. ORDER. 10% DEXTROSE. CARDINAL CALLED TO VERIFY ORDER. NO VOLUME PROVIDED. RN OVERRIDE DEXTROSE 10% PT BLOOD SUGAR DROPPED TO 40'S. VERBALLY STATED BY AID. PT IV REMOVED /REPLACED WITH LEFT FOREARM. IV TOLERATED 125 MLBOLUS.WELL. PT BEING MONITORED BLOOD SUGAR RO BE CHECKED.
--- NOTE | 2021-09-06 19:21 | NUR ---
received recived from nurse hattie, patient alert oriented acchucked 111mg/dl, not in distress, call light in reach.
--- NOTE | 2021-09-06 19:27 | NUR ---
PT RESTING IN LOW FOWLERS BS NOW 100'S 111.
--- NOTE | 2021-09-06 20:00 | NUR ---
PATIENT ALERT ORINETED ABLE TO MAKE NEEDS KNONW, CONSENT FOR COLONOSCOPY SECURED, EDUCATED ON NPO AFTER MIDNIGHT, HAS SALINE LOCK ON LFA G 18 PATENT FLUSHES WELL, REMAINS ON TELEMETRY, ACTIVE BOWEL SOUNDS, CONTINUOUSLY TAKING NULYTELY TOLERATED, PATIENT STANDBY ASSIST WITH TRANSFER, PATIENT REMAINS ON CLEAR LIQUID DIET, CALL LIGHT IN REACH.
--- NOTE | 2021-09-06 21:30 | NUR ---
MADE AWARE ACCUCHEK 65 AT THIS TIME, APPLE JUICE GIVEN AT THIS TIME, AND ORDERED TO CHANGE FLUID TO D5LR @ 75 CC/HR. RECHECK BS
--- NOTE | 2021-09-06 22:52 | NUR ---
EDUCATED ON NPO STATUS POST MIDNIGHT.
[2021-09-07] VITALS (12 sets, daily range): BP systolic 130–173; BP diastolic 53–98
--- NOTE | 2021-09-07 | NUR ---
PATIENT CURRENTLY ON NPO, FLUIDS REMOVED IN ROOM, REMAISN ON TELEMETRY AFIB WITH PVC 95, DENIES PAIN OR DISCOMFORTS AT THIS TIME, HAS ONGOING D5LR @ 75CC/HR INFUSING WELL ON LFA.PATIENT NOT IN DISTRESS CALL LIGHT IN REACH.
--- NOTE | 2021-09-07 03:59 | NUR ---
PATIENT ASSISTED TO THE BATHROOM, HAD ANOTHER EPISODE OF LOOOSE STOOL, ASSISTED BACK IN BED, WILL CONTINUE TO MONITOR.
[2021-09-07 05:46] LABS: HEMATOCRIT 31.1 % (39.0-50.0); HEMOGLOBIN 9.7 g/dl (14.0-18.0); MEAN CELL VOLUME 106.5 fL CALC (80.0-100.0); MEAN CORPUSCULAR HGB 33.2 pG CALC (26.0-32.0); MEAN CORPUSCULAR HGB CONC 31.2 g/dL CAL (32.0-36.0); RED BLOOD COUNT 2.92 mill/uL (4.70-6.10); RED CELL DISTRI WIDTH 15.8 % (11.5-15.5)
[2021-09-07 06:12] LABS: ALBUMIN 2.9 g/dL (3.2-5.0); ALKALINE PHOSPHATASE 99 u/l (38-126); ANION GAP 8 (6-22 (CALC)); BILIRUBIN, TOTAL 0.9 mg/dL (0.0-1.4); BUN 12 mg/dL (8-23); BUN/CREATININE RATIO 13 (12-20 (CALC)); CARBON DIOXIDE 26 mmol/l (22-30); CHLORIDE 104 mmol/l (95-108); CREATININE 0.9 mg/dL (0.7-1.3); GFR FOR AFR.AMER. > 60 ML/MIN (>=60 (CALC)); GFR OTHER RACES > 60 ML/MIN (>=60 (CALC)); MAGNESIUM 1.6 mg/dL (1.6-2.3); POTASSIUM 3.9 mmol/l (3.5-5.1); SGOT/AST 62 u/l (19-48); SODIUM 134 mmol/l (137-146); TOTAL PROTEIN 5.6 g/dL (6.3-8.2)
--- NOTE | 2021-09-07 07:48 | NUR ---
SHIFT CHANGE REPORT, PT AWAKE ALERT AND ORIENTED X 3, NO C/O DISCOMFORT AT THIS TIME BUT INQUIRES ABOUT TIME OF PROCEDURE, OR STAFF REPORED EARLIER THAT HE WILL BE TAKEN DOWN APPROX [phone] TODAY AND THIS INFO WAS RELAYED TO PT. ALL NEEDS ADDRESSED, IVF INFUSING, TELE MONITOR IN PLACE, CALL MARK IN REACH AND BED LOCKED IN LOWEST POSITION.
--- NOTE | 2021-09-07 09:40 | NUR ---
OR STAFF HERE NOW RECEIVING PT AND TRANSFRRING VIA STRETCHER TO OR, PT ALERT AND ORIENTED AND UNDERSTANDS PROCEDURE, SPOUSE AT BEDSIDE AT THIS TIME.
--- NOTE | 2021-09-07 10:35 | NUR ---
PATIENT IS IN SURGERY.
--- NOTE | 2021-09-07 11:44 | NUR ---
REPORT RECEIVED FROM MANDIE IN PACU, PT ARRIVED ON UNIT TRANSPORTED VIA STRETCHER BY PACU STAFF, TRANSFERRED TO BED, GROGGY BUT ORIENTED, IVF OF 0.9 NS INFUSING TO # 22 CATHETER IN RAC, SETUP FOR VITAL SIGNS MONITORING, SPOUSE AT BEDSIDE.
--- NOTE | 2021-09-07 16:00 | NUR ---
ASSISTED TO BR SEVERAL TIMES, NO C/O DISCOMFORT, RESTING IN BED AT THIS TIME AND CALL MARK IN REACH.
--- NOTE | 2021-09-07 20:00 | NUR ---
PATIENT RESTING IN BED AT THIS TIME-AWAKE ALERT AND ORIENTEDX3. IVF D5LR PATENT AND INFUSING VIA RAC SITE AT 50CC/HR. SITE REMAINS HEALTHY. TELE MONITOR IN PLACE. PATIENT UP AND DOWN TO THE BR-PATIENT STATES THAT HE CONT TO HAVE LOOSE BROWN BM'S. FREQUENT SMALL VOIDINGS. LUNGS ARE CLEAR. ABD IS SOFT WITH ACTIVE BS. SAFETY PRECAUTIONS REINFORCED. CALL LIGHT IN REACH. WILL CONT TO MONITOR.
--- NOTE | 2021-09-07 22:00 | NUR ---
CONT TO BE UP AND DOWN TO THE BR TO VOID IN SMALL AMTS. BLADDER SCAN WAS DONE SHOWING ONLY 90CC AT THIS TIME. IVF PATENT AND INFUSING AT 50CC/HR. TELE MONITOR IN PLACE. CALL LIGHT IN REACH. WILL CONT [facility].
--- NOTE | 2021-09-08 00:26 | NUR ---
PATIENT CONT TO BE UP AND DOWN TO THE BR WITH SMALL AMT OF LOOSE BROWN STOOL AND SMALL AMT OF URINE. BACK IN BED AT THIS TIME. CALL LIGHT IN REACH. WILL CONT TO MONITOR.
--- NOTE | 2021-09-08 01:43 | NUR ---
CONT TO BE UP AND DOWN TO THE BR FOR SMALL LOOSE BM'S. OFFERED TO PATIENT TO BRING BSC TO BEDSIDE. PATIENT STATES THAT HE WILL THINK ABOUTR IT AND KLET US KNOW. TELE MONITOR IN PLACE. IVF PATENT AND INFUSING VIA RAC SITE AT 50CC/HR. SITE REMAINS HELATHY. CALL LIGHT IN REACH. WILL CONT TO MONITOR.
--- NOTE | 2021-09-08 03:30 | NUR ---
IV FOUND DISLODGED FROM RAC SITE WITH CATH INTACT. NEW IV SITE STARTED TO LEFT UPPER ARM-#22 WITH GOOD BLOOD RETURN. IVF NS PATENT AND INFUSING AT 50CC/HR. CALL LIGHT IN REACH. WILL CONT TO [facility].
[2021-09-08 04:54] VITALS: BP 116/72
--- NOTE | 2021-09-08 05:07 | NUR ---
RECIEVED CALL FROM PRICILA IN ER-PATIENT RATE UP INTO THE 150'S. RESPONDED TO ROOM TO FIND P ATIENT STANDING TO VOID IN THE URINAL. DENIES ANY CHEST DISCOMFORT OR PALPATATIONS. NO SOB NOTED. BACK INTO BED. PATIENT RATE BACK DOWN TO THE 90'S. WILL CONT TO MONITOR.
[2021-09-08 05:23] LABS: HEMATOCRIT 31.2 % (39.0-50.0); HEMOGLOBIN 9.6 g/dl (14.0-18.0); MEAN CELL VOLUME 106.5 fL CALC (80.0-100.0); MEAN CORPUSCULAR HGB 32.8 pG CALC (26.0-32.0); MEAN CORPUSCULAR HGB CONC 30.8 g/dL CAL (32.0-36.0); RED BLOOD COUNT 2.93 mill/uL (4.70-6.10); RED CELL DISTRI WIDTH 15.8 % (11.5-15.5)
[2021-09-08 05:33] LABS: ANION GAP 8 (6-22 (CALC)); BUN 10 mg/dL (8-23); BUN/CREATININE RATIO 12 (12-20 (CALC)); CARBON DIOXIDE 25 mmol/l (22-30); CHLORIDE 104 mmol/l (95-108); CREATININE 0.9 mg/dL (0.7-1.3); GFR FOR AFR.AMER. > 60 ML/MIN (>=60 (CALC)); GFR OTHER RACES > 60 ML/MIN (>=60 (CALC)); POTASSIUM 3.5 mmol/l (3.5-5.1); SODIUM 134 mmol/l (137-146)
[2021-09-08 06:59] VITALS: BP 150/89
--- NOTE | 2021-09-08 07:40 | NUR ---
SHIFT CHANGE REPORT, PT AWAKE ALERT AND ORIENTED, DENIES PAIN/DISCOMFORT, IVF INFUSING, TELE MONITOR IN PLACE, ASSISTED TO BR AT THIS TIME, CALL MARK IN REACH AND BED LOCKED IN LOWEST POSITION.
[2021-09-08 08:34] VITALS: BP 137/83
[2021-09-08 10:40] VITALS: BP 136/91
--- NOTE | 2021-09-08 12:00 | NUR ---
CONDITION STABLE, SITTING UP IN RECLINER, ALL NEEDS MET/ADDRESSED.
--- NOTE | 2021-09-08 12:25 | NUR ---
Pt teatment continue this am per verbal order of Dr. Knox.
--- NOTE | 2021-09-08 15:35 | NUR ---
SITING UP IN RECLINER RESTING AT THIS TIME, CONDITION UNCHANGED, SPOUSE VISITING.
--- NOTE | 2021-09-08 15:36 | NUR ---
CM JUST INFORMED PT TO BE RECEIVED AND TRANSFERRED TO REHAB FACILITY APPROXIMATELY 1800.
[2021-09-08 16:03] VITALS: BP 162/82
--- NOTE | 2021-09-08 16:41 | NUR ---
PT C/O NOT BEING ABLE TO URINATE BUT LATER REPORTED HE ONLY DRIBBLES, HE REFUSES TO USE A URINAL, C/O OF BEING BLOATED, BLADDER SCANNED = 66ML, URINATES FREQUENTLY SMALL QUANTITIES, WILL CONTINUE TO MONITOR.
--- NOTE | 2021-09-08 17:00 | NUR ---
REPORT CALLED TO NURSE AT [facility], PT EXPECTED TO LEAVE AT 1800.
--- NOTE | 2021-09-08 18:45 | NUR ---
Discharge instructions given. Patient verbalizes understanding of same. Discharged in stable condition via Wheelchair to [facility] with *Other. All belongings sent with pt.
== END 2021-09-08 18:21 | DRG 375 ==
LOC: ED 09:49 → ED-I 11:19 → ED 14:01 → MS2 14:02
PROVIDERS: Family Medicine; Nurse Practitioner; ADMIT Internal Medicine; ATTEND Internal Medicine
PROC: 0DBL8ZX Excision of Transverse Colon, Via Natural or Artificial Opening Endoscopic, Diagnostic (ICD-10-PCS; principal; 2021-09-07)
DX: C18.3 Malignant neoplasm of hepatic flexure (principal); C78.7 Secondary malignant neoplasm of liver and intrahepatic bile duct; N17.9 Acute kidney failure, unspecified; E11.22 Type 2 diabetes mellitus with diabetic chronic kidney disease; I12.9 Hypertensive chronic kidney disease with stage 1 through stage 4 chronic kidney disease, or unspecified chronic kidney disease; N18.30 Chronic kidney disease, stage 3 unspecified; R59.0 Localized enlarged lymph nodes; R91.8 Other nonspecific abnormal finding of lung field; D64.9 Anemia, unspecified; E11.649 Type 2 diabetes mellitus with hypoglycemia without coma; I48.91 Unspecified atrial fibrillation; K57.30 Diverticulosis of large intestine without perforation or abscess without bleeding; N40.1 Benign prostatic hyperplasia with lower urinary tract symptoms; R35.0 Frequency of micturition; Z85.820 Personal history of malignant melanoma of skin; Z91.81 History of falling; Z79.4 Long term (current) use of insulin; Z87.891 Personal history of nicotine dependence; Z20.822 Contact with and (suspected) exposure to COVID-19; Z95.818 Presence of other cardiac implants and grafts
CPT/HCPCS: G0378; J1650; J1756; Q9967

== ENCOUNTER 2022-03-22 12:22 | Emergency (ER) | payer MEDICARE, OTHER ==
[2022-03-22] VITALS (10 sets, daily range): BP systolic 114–153; BP diastolic 67–91
[~2022-03-22] VITALS: Ht 180.3 cm; Wt 78.0 kg
[~2022-03-22 12:22] MED LIST changes: +MAGNESIUM250 M2 PO
[2022-03-22 12:59] LABS: BASO% 0.2 % (0-3); EOS% 0.5 % (0-8); HEMATOCRIT 31.4 % (39.0-50.0); HEMOGLOBIN 9.7 g/dl (14.0-18.0); IMMATURE GRANULOCYTES 1.7 % (0.0-5.0); LYMPH% 4.2 % (15-41); MEAN CELL VOLUME 117.2 fL CALC (80.0-100.0); MEAN CORPUSCULAR HGB 36.2 pG CALC (26.0-32.0); MEAN CORPUSCULAR HGB CONC 30.9 g/dL CAL (32.0-36.0); MONO% 6.5 % (2-13); NEUT# 11.27 thou/uL (1.82-7.42); NEUT% 86.9 % (42-76); RED BLOOD COUNT 2.68 mill/uL (4.70-6.10); RED CELL DISTRI WIDTH 15.8 % (11.5-15.5)
[2022-03-22 13:16] LABS: ALBUMIN 2.5 g/dL (3.2-5.0); ANION GAP 4 (6-22 (CALC)); BILIRUBIN, TOTAL 0.8 mg/dL (0.2-1.3); BUN 16 mg/dL (8-23); BUN/CREATININE RATIO 15 (12-20 (CALC)); CARBON DIOXIDE 29 mmol/l (22-30); CHLORIDE 105 mmol/l (95-108); CREATININE 1.1 mg/dL (0.7-1.3); GFR FOR AFR.AMER. > 60 ML/MIN (>=60 (CALC)); GFR OTHER RACES > 60 ML/MIN (>=60 (CALC)); SGOT/AST 39 u/l (19-48); SODIUM 135 mmol/l (137-146); TOTAL PROTEIN 5.5 g/dL (6.3-8.2)
[2022-03-22 13:39] LABS: ALKALINE PHOSPHATASE 158 u/l (38-126)
== END 2022-03-22 14:12 | disposition hospice, home (50) ==
LOC: ED 12:22
PROVIDERS: Emergency Medicine
DX: E11.649 Type 2 diabetes mellitus with hypoglycemia without coma (principal); I10 Essential (primary) hypertension; F17.200 Nicotine dependence, unspecified, uncomplicated; Z79.4 Long term (current) use of insulin; Z51.5 Encounter for palliative care